=== PATIENT | female | born 1995 ===

== ENCOUNTER 2019-11-13 20:08 | Emergency (ER) | payer SELFPAY ==
[~2019-11-13] VITALS: Ht 167.6 cm; Wt 52.0 kg
[2019-11-13] MEDS ORDERED: METOCLOPRAMIDE 5 MG/ML, 2ML IVPush ONE (20:30)
[2019-11-13] MEDS ORDERED: SODIUM CHLORIDE 0.9% 1,000ML IVBOLUS ONE (20:30)
[2019-11-13] MEDS ORDERED: SODIUM CHLORIDE FLUSH 10ML SYR IVF ONE (20:30)
[2019-11-13] MEDS ORDERED: METOCLOPRAMIDE 5 MG/ML, 2ML ONE (20:33)
[2019-11-13 20:47] LABS: BASOPHILS # (AUTO) 0.04 x10^3/uL (0-0.1); BASOPHILS % (AUTO) 0 % (0-1); EOSINOPHILS # (AUTO) 0.61 x10^3/uL (0-0.4); EOSINOPHILS % (AUTO) 6 % (1-7); LYMPHOCYTES # (AUTO) 2.28 x10^3/uL (1-3.4); LYMPHOCYTES % (AUTO) 24 % (22-44); MD NO; MEAN CORPUSCULAR HEMOGLOBIN 29.3 pg (27.0-34.8); MEAN CORPUSCULAR VOLUME 88.7 fL (80-100); MONOCYTES # (AUTO) 0.48 x10^3/uL (0.2-0.8); MONOCYTES % (AUTO) 5 % (2-9); NEUTROPHILS # (AUTO) 6.11 x10^3/uL (1.8-6.8); NEUTROPHILS % (AUTO) 64 % (42-75); PLATELET COUNT 280 x10^3/uL (130-400); RED BLOOD COUNT 4.56 x10^6/uL (3.82-5.3)
--- NOTE | 2019-11-13 20:57 | NUR ---
PT HAS BEEN AMBULATORY TO BATHROOM WITH STEADY GAIT X2. PT LAYING IN BED, FLUIDS RUNNING, CONNECTED TO BP AND O2 MONITORS, NO SIGNS OF DISTRESS. SIDE RAILS UPX2. CALL LIGHT IN REACH. VISITOR AT BEDSIDE. LIGHTS OFF TO PROMOTE REST. ALL NEEDS MET AT THIS TIME.
[2019-11-13 20:58] LABS: ALANINE AMINOTRANSFERASE 14 U/L (12-78); ALBUMIN 2.5 g/dL (3.4-5.0); ANION GAP 9 mmol/L (5-15); CALCIUM 8.8 mg/dL (8.5-10.1); CHLORIDE 111 mmol/L (98-107); CREATININE 3.36 mg/dL (0.55-1.02)
[2019-11-13 21:02] LABS: ALKALINE PHOSPHATASE 93 U/L (45-117); BILIRUBIN,TOTAL 0.2 mg/dL (0.2-1.0); TOTAL PROTEIN 6.8 g/dL (6.4-8.2)
[2019-11-13 21:06] LABS: MICROSCOPIC INDICATED
--- NOTE | 2019-11-13 21:16 | NUR ---
PT LAYING IN BED, EYES CLOSED RESPIRATIONS EVEN AND UNLABORED. VISITOR LAYING IN BED WITH PT.
--- NOTE | 2019-11-13 21:46 | NUR ---
ERP HAS BEEN BACK TO BEDSIDE TO UPDATE PT ON POC.
[2019-11-13 21:55] VITALS: BP 128/84
== END 2019-11-13 21:58 | disposition home or self-care (01) ==
LOC: ED 21:00
DX: N30.01 Acute cystitis with hematuria (principal); R11.2 Nausea with vomiting, unspecified; N18.9 Chronic kidney disease, unspecified
CPT/HCPCS: 36415; 80053; 81001; 84703; 85025; 87086; 96374; 99283; J2765; J7030